=== PATIENT | male | born 1990 | race Caucasian/White ===

== ENCOUNTER 2023-08-29 10:20 | Emergency (ER) | payer OTHER, SELFPAY ==
[2023-08-29 10:21] VITALS: BP 143/119; PULSE 84; RESP 14; TEMP 35.9; O2SAT 100; BMI 24.3
--- NOTE | 2023-08-29 11:25 | RAD_ITS ---
INDICATION: Chest pain EXAMINATION/TECHNIQUE: X-RAY - XR Chest 1 View COMPARISON: No relevant prior comparison study available FINDINGS: LINES/DEVICES: None. LUNGS: No consolidation, edema or effusion. No pneumothorax. MEDIASTINUM AND CARDIOVASCULAR STRUCTURES: Cardiac silhouette not enlarged. Central airways and mediastinal contour are unremarkable. BONES AND SOFT TISSUES: Unremarkable. RAD/Chest 1 View (Portable) IMPRESSION: No radiographic evidence of acute cardiopulmonary disease. Electronically Signed: Nasim Ortiz MD at 11:48 EST ,
[2023-08-29 11:34] LABS: Absolute Lymphocyte Count 1.56 X10^3/uL (0.83-4.51); Absolute Neutrophil Count 6.5 X10^3/uL (2.0-7.7); Basophil# 0.06 X10^3/uL; Basophil% 0.7 % (0-1); Eosinophil# 0.07 X10^3/uL; Eosinophils% 0.8 % (0-5); Hematocrit 40.4 % (40-54); Hemoglobin 14.1 g/dL (13.0-16.5); Lymphocyte # 1.56 X10^3/ul (0.83-4.51); Lymphocyte % 17.3 % (19-41); Mean Corp Hgb Conc 34.9 g/dL (32-36); Mean Corpuscular Hgb 31.7 pg (27.0-32.0); Mean Corpuscular Volume 90.8 fL (80-94); Mean Platelet Vol. 9.8 fl (6.2-12.0); Monocyte# 0.82 X10^3/uL; Monocyte% 9.1 % (0-10); NRBC Flagged by Analyzer 0 % (0-5); Neutrophil # 6.45 X10^3/uL (2.7-7.7); Neutrophil % 71.7 % (47-70); Platelet Count 292 K/mm3 (150-450); RBC Distribution Width SD 39.7 fl (35.1-43.9); Red Blood Count 4.45 M/mm3 (4.6-6.2)
--- NOTE | 2023-08-29 11:35 | ED.VIS.CHEST ---
HPI History of Present Illness Chief Complaint: Chest Pain Narrative Narrative: 33-year-old male presenting with chest pain/epigastric pain. He states that he started to have symptoms. Patient admits to chronic alcohol abuse. He stopped drinking on . Wednesday morning he had a lot of nausea and vomiting. He states he was seen in [facility] ED and had blood work done. Ultimately they told him he would have some epigastric discomfort and they put him on phenobarbital. He states other than not being able to eat or drink secondary to epigastric pain and dyspepsia he has minimal symptoms. Last drink was . Denies fever or chills. Denies black or bloody stools or emesis. No cardiac history. PFSH PFSH Home Medications famotidine 20 mg tablet (Pepcid) 20 mg PO BID PRN Epigastric pain #20 tabs 08/29/23 [Rx Last Taken Unknown] ondansetron 4 mg disintegrating tablet 4 mg PO Q8H PRN PRN Nausea #20 tabs 08/29/23 [Rx Last Taken Unknown] pantoprazole 40 mg tablet,delayed release (Protonix) 40 mg PO DAILY #30 tabs 08/29/23 [Rx Last Taken Unknown] sucralfate 100 mg/mL oral suspension (Carafate) 10 ml PO BID PRN Epigastric pain #400 mL 08/29/23 [Rx Last Taken Unknown] Allergy/AdvReac Type Severity Reaction Status Date / Time No Known Allergies Allergy Verified 08/29/23 10:24 Social History Smoking Status: Never smoker [facility] ED Constitutional Constitutional ED: Denies chills, fever(s) or sweats Eyes Eyes: Denies blurry vision or change in vision ENT ENT ED: Denies ear pain or sore throat Cardiovascular Cardiovascular: Reports chest pain; Denies palpitations or racing heartbeat Respiratory/Chest Respiratory/Chest: Denies cough, dyspnea or sputum Gastrointestinal Gastrointestinal: Reports abdominal pain, nausea and vomiting; Denies constipation or diarrhea Genitourinary Genitourinary ED: Denies dysuria, hematuria or urinary frequency Musculoskeletal Musculoskeletal: Denies arthralgias, myalgias or neck pain Integumentary Denies abscess, Abrasions or rash Neurologic Neurologic: Denies headache(s), paresthesias or weakness Psychiatric Psychiatric: Denies anxiety, depression, suicidal ideation or suicidal thoughts Endocrine Endocrinology: Denies polydipsia or polyuria EXAM Physical Exam Const Vital Signs: 08/29/23 10:21 08/29/23 10:44 08/29/23 11:19 Temperature 96.7 F L Temperature Source Temporal Pulse Rate 84 Respiratory Rate 14 Respiratory Effort Normal Non-Labored Blood Pressure 143/119 H Blood Pressure Mean 127 Pulse Ox 100 Oxygen Delivery Method Room Air 08/29/23 12:20 Temperature Temperature Source Pulse Rate Respiratory Rate 18 Respiratory Effort Blood Pressure Blood Pressure Mean Pulse Ox Oxygen Delivery Method Positive well nourished and obese General Appearance ED: NAD; Negative for pallor Nutritional Appearance: obese HEENT Reports moist mucous membranes normocephalic Eyes PERRL and EOMs intact bilaterally Neck no lymphadenopathy Chest Wall inspection of chest normal Resp normal respiratory effort and clear to auscultation bilaterally Cardio regular rate and regular rhythm GI GI Narrative: Mild epigastric tenderness. Back/Spine no CVA tenderness Extremity normal to inspection Neuro oriented x3 and CN's II-XII intact bilaterally Sensorium / Orientation: awake and alert Psych mental status grossly normal Skin no rashes or lesions noted General Skin Exam: Negative for jaundice or pallor MDM MDM MDM Narrative Medical decision making narrative: Patient with history of EtOH abuse and nausea and vomiting. He describes epigastric/chest pain. Differential includes ACS, pneumonia, pneumothorax, Boerhaave's, EtOH withdrawal, EtOH intoxication dehydration, anemia, pancreatitis, gastritis. LFTs to assess liver function. BMP to assess renal function electrolytes. Lipase to assess for pancreatitis. EKG and high-sensitivity troponin rule out ischemia/dysrhythmia. Chest x-ray to rule out pneumonia. Patient medicated with IV Protonix, Zofran, GI cocktail. CBC shows normal white blood cell count of 9.0. Hemoglobin stable at 14.1. Platelets are normal at 292. Renal function electrolytes within normal limits. LFTs show slight elevation in AST, ALT, bilirubin but nothing significant. Lipase is negative. On reevaluation patient was able to tolerate GI cocktail. At this point he wants to try to be discharged home. He will continue his phenobarbital prescribed by Giovanny Hwang. He is given Protonix, Zofran, Carafate to help with his GI symptoms. He will continue to abstain from alcohol use. He is counseled on bland diet and advancing as tolerated. Impression: 1. History of EtOH abuse 2. Nausea/vomiting 3. Gastritis Lab Data Labs: Laboratory Results - last 24 hr 08/29/23 11:10 WBC 9.0 RBC 4.45 L Hgb 14.1 Hct 40.4 MCV 90.8 MCH 31.7 MCHC 34.9 RDW Std Deviation 39.7 RDW Coeff of Vianey 12.0 Plt Count 292 MPV 9.8 Immature Gran % (Auto) 0.400 Neut % (Auto) 71.7 H Lymph % (Auto) 17.3 L Grand % (Auto) 9.1 Eos % (Auto) 0.8 Baso % (Auto) 0.7 Absolute Neuts (auto) 6.5 Absolute Lymphs (auto) 1.56 Nucleated RBC % 0 Sodium 137 Potassium 3.4 L Chloride 103 Carbon Dioxide 26.0 Anion Gap 8 BUN 9 Creatinine 0.71 Estim Creat Clear Calc 143.17 Est GFR (MDRD) Af Amer 163 Est GFR (MDRD) Non-Af 135 BUN/Creatinine Ratio 12.6 Glucose 101 Calcium 8.7 Total Bilirubin 1.00 Direct Bilirubin 0.34 H AST 81 H ALT 64 H Alkaline Phosphatase 77 Troponin I High Sens 3 Total Protein 7.0 Albumin 3.6 Globulin 3.4 Lipase 25 Radiography Diagnostic Testing: Clinical Impression(s) from Imaging Studies Chest X-Ray 08/29/23 11:25 IMPRESSION: No radiographic evidence of acute cardiopulmonary disease. Electronically Signed: Nasim Ortiz MD at 11:48 EST , Discharge Plan Triage Chief Complaint: Chest Pain ED Provider: Viraj Jordan Dx/Rx/DC Orders Instructions: ED Gastritis (Adult), ED Alcohol Abuse Prescriptions: New sucralfate [Carafate] 100 mg/mL suspension 10 ml PO BID PRN (Reason: Epigastric pain) Qty: 400 0RF pantoprazole [Protonix] 40 mg tablet,delayed release (DR/EC) 40 mg PO DAILY Qty: 30 0RF ondansetron 4 mg tablet,disintegrating 4 mg PO Q8H PRN PRN (Reason: Nausea) Qty: 20 0RF famotidine [Pepcid] 20 mg tablet 20 mg PO BID PRN (Reason: Epigastric pain) Qty: 20 0RF Primary Care Provider: Care Physician,No Primary Referrals: Friend,Jose, DO [Med Staff - Active Staff] - 3-5 Days NOT,DEFINED [Non-Staff] - Disposition Disposition: Home, Self Care
[2023-08-29 11:37] LABS: AST(SGOT) 81 U/L (15-37); Alanine Aminotransfer ALT/SGPT 64 U/L (16-61); Albumin, Serum 3.6 g/dL (3.2-5.0); Alkaline Phosphatase 77 U/L (45-117); Anion Gap 8 (5-15); BUN 9 mg/dL (7-18); BUN/Creat Ratio 12.6 RATIO (10-20); Bilirubin, Direct 0.34 mg/dL (0.00-0.30); Calcium,Total 8.7 mg/dL (8.5-10.1); Chloride 103 mmol/L (98-107); Creatinine, Serum 0.71 mg/dL (0.70-1.30); EST Glomerular Filtration Rate 135 mL/min (>60); Est Glom Filt Rate - Afr Amer 163 mL/min (>60); Estimated Creatinine Clearance 143.17 ml/min; Globulin 3.4 g/dL (2.2-4.2); Glucose 101 mg/dL (74-106); Lipase 25 U/L (13-75); Potassium 3.4 mmol/L (3.5-5.1); Sodium Level 137 mmol/L (136-145); Troponin-I HS 3 pg/mL (3.0-78.0)
--- NOTE | 2023-08-29 12:05 | ED.RN ---
THIS RN IN TO CHECK ON PATIENT AT THIS TIME. PT AND PT'S EXPRESS CONCERN TO THIS RN THAT THEY FEEL THOUGH THE ED DRTanner DID NOT LISTEN TO THEM THOROUGHLY. THIS RN MADE SURE TO SIT AND LISTEN TO PT AND 'S CONCERNS REGARDING CARE. PT DEEPLY DESCRIBES HIS SYMPTOMS AND FEELINGS, THIS RN GOES TO TALK TO PROVIDER IN REGARDS TO PATIENT CONCERNS. THIS RN ASKS DR. WANG FOR ORDERS FOR POSSIBLY GI COCKTAIL SINCE PT DESCRIBES A BURNING SENSATION IN SUBSTERNAL AREA THAT RADIATES ALL THE WAY THROUGH HIM. AT THIS POINT DR. WANG STATES I THOUGHT I ORDERED HIM MEDS. THIS RN CONFIRMED THAT THERE WERE NO MEDS ORDERED AT THIS TIME. DR WANG TO PUT IN MED ORDERS FOR PT. CHARGE NURSE JEAN PIERRE MADE AWARE.
[2023-08-29 12:20] VITALS: RESP 18
[2023-08-29] MEDS: Mag Hydrox/Al Hydrox/Simeth 30 ML UDC PO (12:22)
[2023-08-29] MEDS: Ondansetron 4 MG/2 ML Vial IV (12:22)
[2023-08-29] MEDS: Pantoprazole Sodium 40 MG in 0.9% Normal Saline (100mL MB+) 100 ML 330 MG IV (12:26)
== END 2023-08-29 15:10 | disposition home or self-care (01) ==
PROVIDERS: Emergency Provider Student in an Organized Health Care Education/Training Program; Visit Provider Student in an Organized Health Care Education/Training Program
DX: K29.70 Gastritis, unspecified, without bleeding (principal); R11.2 Nausea with vomiting, unspecified; E66.9 Obesity, unspecified
CPT/HCPCS: 71045; 80048; 80076; 83690; 84484; 85025; 93005; 96365; 96375; 99283; A4216; J2405